=== PATIENT | female | born 1955 | race Caucasian/White ===

== ENCOUNTER 2017-09-28 06:25 | Day surgery (SDC) | payer OTHER ==
[~2017-09-28 06:25] MED LIST: INDAPAMIDE2.5 MG PO; LIPITOR20 MG PO; VITAMIN D10000 UNIT PO; [UNRECOGNIZED DRUG - OTHER]
== END 2017-09-28 16:10 | disposition home or self-care (01) ==
LOC: CIR.AMB 06:25
DX: H80.22 Cochlear otosclerosis, left ear (principal)